=== PATIENT | female | born 1965 | race African-American/Black ===

== ENCOUNTER 2019-10-02 07:06 | Emergency (ER) | payer MEDICAID ==
[~2019-10-02] VITALS: Ht 162.6 cm; Wt 65.8 kg
[2019-10-02] MEDS ORDERED: IBUPROFEN600 MG ORAL ×2 (07:26→08:26)
--- NOTE | 2019-10-02 07:53 | NUR ---
ED Nurse Note: came from home with complaints that she had broken left ankle x 9 weeks . still has pain no spluint or cast noted waiting for x-rays
--- NOTE | 2019-10-02 07:57 | Emergency Room Report ---
History of Present Illness General Chief Complaint: Lower Extremity Injury Source: Patient Present Illness HPI 53-year-old female presents ED for evaluation. Complaining of left ankle pain and swelling. States that she injured her ankle on 08/30. States that "they will not put a cast on my leg" referring to other ERs. States that she continues to walk on it and have pain. Believes it is broken. Does not have it she was not told it was broken by the other ERs. Pain is throbbing, 9 out of 10, nonradiating. Also swollen. Denies any other injuries. No other aggravating relieving factors. Denies any other associated symptoms Allergies: Coded Allergies: No Known Allergies (Unverified , 10/02/19) Patient History Past Medical History: asthma Past Surgical History: none Pertinent Family History: none Social History: Denies: smoking, alcohol use, drug use Last Menstrual Period: MENOPAUSAL Now: No Immunizations: UTD Reviewed Nursing Documentation: PMH: Agreed; PSxH: Agreed Nursing Documentation-PMH Hx Asthma: Yes Review of Systems All Other Systems: negative except mentioned in HPI Physical Exam Vital Signs Date Time Temp Pulse Resp B/P (MAP) Pulse Ox O2 Delivery O2 Flow Rate FiO2 10/02/19 07:19 98.1 90 20 147/96 (113) 98 Room Air Sp02 EP Interpretation: reviewed, normal General Appearance: no apparent distress, alert, GCS 15, non-toxic Head: normocephalic Eyes: bilateral eye normal inspection, bilateral eye PERRL ENT: normal ENT inspection Neck: normal inspection Respiratory: normal inspection Cardiovascular #1: normal inspection Gastrointestinal: normal inspection Rectal: deferred Genitourinary: no CVA tenderness Musculoskeletal: swelling - L ankle Neurologic: alert, motor strength/tone normal, oriented x3, sensory intact, responsive, speech normal Psychiatric: normal inspection, judgement/insight normal Skin: no rash Lymphatic: normal inspection Procedures Splinting Splinting : Consent: Verbal Splint: poserior short Pre-Proc Neuro Vasc Exam: normal Post-Proc Neuro Vasc Exam: normal Patient Tolerated: Well Complications: None Medical Decision Making Diagnostic Impression: Primary Impression: Fibula fracture Qualified Codes: S82.832A - Other fracture of upper and lower end of left fibula, initial encounter for closed fracture ER Course Hospital Course 53 yo F presents to ED with L ankle swelling/pain. states her ankle is broken but other ER wouldnt place in a cast Differential diagnoses include: Fracture, dislocation, sprain, contusion Clinical course Patient placed on stretcher. After initial history and physical, I ordered pain medications and Xrays of L ankle Xrays read shows healing fracture of the distal fibula. Discussed with patient. I suspect that patient either refused cast or removed it previously. Encouraged patient to remain compliant with splinting today. Patient in posterior splint given crutches. Will discharge to home with orthopedic referral Diagnosis - fibula fx Stable and discharged to home with prescription for Motrin. apply ice, keep elevated. weight bear as tolerated. Followup with PMD/ortho. Return to ED if symptoms recur or worsen Other X-Ray Diagnostic Results Other X-Ray Diagnostic Results : X-Ray ordered: L ankle # of Views/Limited Vs Complete: 3 View Indication: Pain EP Interpretation: Yes Interpretation: no dislocation, no soft tissue swelling, other - distal fibula fx Impression: Other - fx Electronically Signed by: Electronically signed by Farooq Cody MD Last Vital Signs Date Time Temp Pulse Resp B/P (MAP) Pulse Ox O2 Delivery O2 Flow Rate FiO2 10/02/19 07:19 98.1 90 20 147/96 (113) 98 Room Air Status: improved Disposition: HOME, SELF-CARE Condition: Stable Scripts Ibuprofen* (MOTRIN*) 600 Mg Tablet 600 MG ORAL Q8H PRN for For Pain, #30 TAB 0 Refills Prov: Farooq Cody MD 10/02/19 Referrals: [facility],REFERR[facility] (PCP) Farooq Cody MD Oct 02, 2019 07:57
--- NOTE | 2019-10-02 08:23 | NUR ---
ED Nurse Note:left short posterior splint was applied on left leg, and cast shoe with cratchies provided to pt
[2019-10-02 08:40] VITALS: BP 147/96
--- NOTE | 2019-10-02 08:40 | NUR ---
ER DISCHARGE NOTE: Patient is cleared to be discharged per ERMD, pt is aox4, on room air, with stable vital signs. pt was given dc and prescription instructions, pt was able to verbalize understanding, pt is able to ambulate with steady gait. pt took all belongings.
--- NOTE | 2019-10-02 08:40 | Diagnostic Imaging Report ---
EXAM: XR Left Ankle Complete, 3 or More Views CLINICAL HISTORY: PAIN TECHNIQUE: Frontal, lateral and oblique views of the left ankle. COMPARISON: No relevant prior studies available. FINDINGS: Bones/joints: Slightly displaced oblique fracture of the distal fibular metaphysis. There is subtle sclerosis through the lateral aspect of the distal tibial metaphysis without definite fracture line. No dislocation. Soft tissues: Soft tissue swelling. IMPRESSION: 1. Slightly displaced oblique fracture of the distal fibular metaphysis. 2. There is subtle sclerosis through the lateral aspect of the distal tibial metaphysis without definite fracture line.
== END 2019-10-02 08:49 | disposition home or self-care (01) ==
LOC: EMR 07:35
DX: S82.832A Other fracture of upper and lower end of left fibula, initial encounter for closed fracture (principal); X58.XXXA Exposure to other specified factors, initial encounter; Y92.9 Unspecified place or not applicable
CPT/HCPCS: 29515; 73610; Z7502; 99283